=== PATIENT | male | born 1980 | race Caucasian/White ===

== ENCOUNTER 2022-08-15 15:47 | Emergency (ER) | payer OTHER, SELFPAY ==
--- NOTE | ~2022-08-15 | CT_ITS ---
EXAMINATION: CT cervical spine wo con DATE: 08/15/2022 16:31 INDICATION: Head injury TECHNIQUE: Computed tomography (CT) of the cervical spine was performed without intravenous contrast. The dose-length product (DLP) was 455.70 mGy-cm. Automated exposure control and iterative reconstruc tion technique were employed. COMPARISON: None FINDINGS: There is reversal of normal cervical lordosis. The odontoid is intact. There is mild loss o f anterior vertebral body height at the superior endplate of C3 with adjacent spurring and osteophyte formation, likely chronic. There is mild loss of intervertebral disc space height at C5-6. The preve rtebral soft tissues are unremarkable. IMPRESSION: 1. Mild cervical spondylosis without acute findings. Reviewed, dictated and finalized at location F. 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
--- NOTE | ~2022-08-15 | CT_ITS ---
EXAMINATION: CT brain wo con INDICATION: Head injury COMPARISON: None TECHNIQUE: Standard unenhanced head CT. The dose-length product (DLP) was 681.00 mGy-cm. The mA was a djusted according to patient size. Iterative reconstruction technique was employed. FINDINGS: There is no intracranial hemorrhage, acute infarction, or abnormal mass lesion. The ventric les are normal. There is no abnormal mass effect or midline shift. The alvarado-white matter differentiat ion is normal. The basal cisterns are patent. The orbits are normal. There is mild mucosal thickening of the paranasal sinuses. IMPRESSION: 1. No acute intracranial abnormality. Reviewed, dictated and finalized at location F. L [employer]ING [employer]DER
[2022-08-15 15:59] VITALS: BP 171/111; PULSE 86; RESP 18; TEMP 37.1; O2SAT 98
--- NOTE | 2022-08-15 16:16 | ED.FALL ---
HPI - Fall General Chief Complaint: Fall Stated Complaint: neck injury Time Seen by Provider: 08/15/22 16:02 Source: patient Mode of arrival: ambulatory Limitations: no limitations History of Present Illness HPI Narrative: This is a 42-year-old gentleman while at work had fallen over backwards striking his neck and head with no loss of consciousness currently has pain in his cervical area with no radiation of his pain no blurry vision no nausea vomiting has good range of motion of his arms and shoulders with no numbness or tingling but does have reduced range of motion in the neck secondary to pain. Currently no chest pain no shortness of breath no flank pain no other injuries except for a mild non gaping laceration on the left palmar surface of his left hand. complaint: fall Onset (ago): hour(s) Fall from: standing Fall witnessed: no Place fall occurred: work Loss of consciousness: none Prolonged down time: no Symptoms prior to fall: none Context: tripped/slipped Location of injury: head and neck Severity: moderate Severity scale (1-10): 7 Quality: aching Related Data Allergies Allergy/AdvReac Type Severity Reaction Status Date / Time No Known Allergies Allergy Unverified 08/15/22 16:11 Review of Systems Review of Systems: All systems reviewed & are unremarkable except as noted in HPI and below PMFSH Past Medical History Medical History (Updated 08/15/22 @ 16:49 by Miguelito Dominique MD) Low back pain Surgical History Surgical History History of orchiectomy Social History Social History Smoking status: Current every day smoker Alcohol intake: current Substance use type: marijuana Exam Const: General: healthy appearing Nutritional Appearance: well nourished Limitations: no limitations HENMT: Head: normal to inspection Face/Nose/Sinus: Normal external nose present Face and sinus: normal facial exam Mouth: Yes Normal oral and palatal mucosa present Eyes: Conjunctivae: conjunctivae normal Pupils: Equal, round and reactive pupils present EOM: EOMs intact bilaterally Neck: Neck: normal visual inspection, no lymphadenopathy and no meningeal signs Other: Tender with palpation and range of motion Chest: Chest palpation & inspection: normal inspection of the chest Resp: Effort & Inspection: normal respiratory effort Auscultation: clear to auscultation bilaterally Cardio: Rate: regular rate Rhythm: regular rhythm GI: GI Palp: Yes Soft to palpation Auscultation: normal bowel sounds Urinary Catheter: Urinary Catheter: patent and draining Back/Spine/Pelvis: Back: no CVA tenderness Other: cervical spine tenderness with palpation Skin: General skin exam: normal color Rashes: no rashes Wounds: wounds noted Neuro: General: patient oriented x3 Cranial nerves: Yes Nystagmus not present Extrem: General: normal to inspection Psych: Mental Status: mental status grossly normal Affect: normal affect Course Course Emergency Course: patient received 60mg IM Toradol, received Adacel tap date patient with his tetanus CT scan of cervical spine and brain reviewed with patient. Vital Signs Vital signs: Vital Signs Temperature 37.1 C 08/15/22 15:59 Pulse Rate 86 08/15/22 15:59 Respiratory Rate 18 08/15/22 15:59 Blood Pressure 171/111 H 08/15/22 15:59 Pulse Oximetry 98 08/15/22 15:59 Oxygen Delivery Room Air 08/15/22 15:59 Temperature 37.1 C 08/15/22 15:59 Pulse Rate 86 08/15/22 15:59 Respiratory Rate 18 08/15/22 15:59 Blood Pressure 171/111 H 08/15/22 15:59 Pulse Oximetry 98 08/15/22 15:59 Oxygen Delivery Room Air 08/15/22 15:59 Procedures Laceration Laceration 1: Date: 08/15/22 Time: 16:48 Site: upper extremity Side (If applicable): left Size (cm): 2 Description: linear Pre
[2022-08-15] MEDS: TETANUS,DIPHTHERIA,AC PERTUSSIS ADULT 0.5 ML (ADACEL) IM (16:53)
[2022-08-15] MEDS: KETOROLAC (*BKC) 60 MG/2 ML VIAL IM (16:54)
[2022-08-15 17:03] VITALS: BP 163/119; PULSE 76; RESP 18; TEMP 36.7; O2SAT 98
[2022-08-15 17:19] VITALS: BP 164/111; PULSE 73; RESP 18; O2SAT 98
== END 2022-08-15 17:34 | disposition home or self-care (01) ==
LOC: CHSED 17:04
PROVIDERS: Emergency Provider Emergency Medicine
DX: S16.1XXA Strain of muscle, fascia and tendon at neck level, initial encounter (principal); S61.412A Laceration without foreign body of left hand, initial encounter; W19.XXXA Unspecified fall, initial encounter
CPT/HCPCS: 12001; 70450; 72125; 90471; 90715; 96372; 99283; J1885

== ENCOUNTER 2022-08-16 14:32 | Outpatient (CLI) | payer OTHER, SELFPAY ==
[2022-08-16 14:52] LABS: Hematocrit 49.7 % (40.0-54.0); Hemoglobin 17.4 g/dL (14.0-18.0); Mean Corpuscular Hemoglobin 32.8 pg (27.0-31.0); Mean Corpuscular Volume 93.8 fL (78.0-102.0); Mean Platelet Volume 10.3 fl (8.7-11.0); Platelet Count Result 189 K/mm3 (150-420); White Blood Count 8.4 K/mm3 (4.8-10.8)
[2022-08-16 15:20] LABS: Thyroid Stimulating Hormone Reflex 3.17 u/IU/mL (0.36-3.74)
[2022-08-16 15:29] LABS: Alanine Aminotransferase 81 U/L (16-63); Albumin Level 4.1 g/dL (3.4-5.0); Alkaline Phosphatase 74 U/L (46-116); Anion Gap 6 mmol/L (8-16); Aspartate Amino Transferase 27 U/L (15-37); Bilirubin,Total 0.5 mg/dL (0.00-1.00); Blood Urea Nitrogen 16 mg/dL (7-18); Calcium 8.9 mg/dL (8.5-10.1); Carbon Dioxide 28 mmol/L (21-32); Chloride 108 mmol/L (98-108); Cholesterol 216 mg/dL (0-200); Estimated Glomerular Filt Rate > 60; Glucose 123 mg/dL (70-99); HDL Direct 33 mg/dL (40-60); LDL Cholesterol Calculated 136 mg/dL (<130); Osmolality Calculated 296 mOsm/kg (285-295); Potassium 3.9 mmol/L (3.5-5.1); Sodium 142 mmol/L (136-145); Total Protein 6.9 g/dL (6.4-8.2); Triglycerides 233 mg/dL (0-150)
== END 2022-08-16 14:33 | disposition home or self-care (01) ==
LOC: CHSLAB 14:34
PROVIDERS: PCP Family Medicine; Visit Provider Family Medicine
DX: E11.9 Type 2 diabetes mellitus without complications (principal); I10 Essential (primary) hypertension
CPT/HCPCS: 36415; 80053; 80061; 84443; 85027

== ENCOUNTER 2024-07-27 14:52 | Outpatient (CLI) | payer BC, SELFPAY ==
--- NOTE | ~2024-07-27 | XR_ITS ---
EXAM: XR ankle RT min 3V, XR foot RT 2V DATE: 07/27/2024 15:13 HISTORY: RT ANKLE/FOOT PAIN,X2MO,WORSENING,SWELLING,NKI . COMPARISON: None available. FINDINGS: Normal mineralization. No acute fracture or dislocation. Well-corticated ossific fragment along the superior margin of the talus, may represent an old anterior capsular avulsion fragment. No lytic or blastic lesion. Joint spaces are mild degenerative change at the first MTP joint and ankle j oint. Achilles enthesopathy. No erosion or periosteal change. Soft tissues within normal limits. 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 Achilles enthesopathy. Reviewed, dictated and finalized at location K. 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 Achi lles enthesopathy.
== END 2024-07-27 14:53 | disposition home or self-care (01) ==
PROVIDERS: PCP Family Medicine; Visit Provider Nurse Practitioner Family
DX: M25.471 Effusion, right ankle (principal); M19.071 Primary osteoarthritis, right ankle and foot; M76.61 Achilles tendinitis, right leg
CPT/HCPCS: 73610; 73620